=== PATIENT | male | born 1985 | race African-American/Black ===

== ENCOUNTER 2021-03-04 07:42 | Inpatient (IN) | payer OTHER ==
[~2021-03-04] VITALS: Ht 167.6 cm; Wt 57.2 kg
[2021-03-04] VITALS (23 sets, daily range): BP systolic 79–118; BP diastolic 21–73
--- NOTE | 2021-03-04 07:52 | NUR ---
PT UNCONSCIOUS, UNRESPONSIVE TO VOICE AND PAIN.
--- NOTE | 2021-03-04 07:52 | NUR ---
PT BIBRA FROM HOME C/O TOOK 3 CAPS OF GHB AND DRANK ALCOHOL. PLACED IN BED 9 ON MANDARIN TEACHER AND PULSE OX. ER MD AT BEDSIDE FOR EVAL. AWAITING ORDERS.
[2021-03-04] MEDS ORDERED: ONDANSETRON HCL/PF 4 MG/2 ML VIAL ONE (07:59)
[2021-03-04] MEDS ORDERED: ONDANSETRON HCL/PF 4 MG/2 ML VIAL IVP ONE (08:00)
--- NOTE | 2021-03-04 08:10 | NUR ---
CALLED POISON CONTROL THIS IS THEIR RECOMMENDATION: BE ON THE LOOKOUT FOR EKG CHANGES SUCH : QNS DEPRESSION ST DEPRESSION MONITOR FOR SUPPORTIVE CARE UNTIL PATIENT WAKES UP AND EFFECTS WEAR OFF. CHECK FOR CHEM ACIDOSIS SUPPORTIVE CARE UNTIL WEARS OFF CHECK ALCOHOL.
--- NOTE | 2021-03-04 08:16 | NUR ---
PT APPEARS TO BE SEIZING. MD AT BEDSIDE.
[2021-03-04] MEDS ORDERED: LORAZEPAM INJ 2 MG/ML VIAL ONE (08:18)
[2021-03-04 08:23] LABS: BASOPHILS % (AUTO) 0.3 % (0.0-2.0); CALCIUM, SERUM 8.5 mg/dL (8.5-10.1); CARBON DIOXIDE 18 mmol/L (21-32); CHLORIDE 103 mmol/L (98-107); EOSINOPHILS % (AUTO) 0.1 % (0.0-6.0); GLUCOSE 155 mg/dL (74-106); HEMATOCRIT 46 % (39-51); HEMOGLOBIN 15.3 g/dL (13.5-17.5); LYMPHOCYTES # (AUTO) 2.5 K/uL (0.8-4.8); LYMPHOCYTES % (AUTO) 16.1 % (20.0-44.0); MEAN CORPUSCULAR HGB CONC 33 g/dl (31.0-36.0); MEAN CORPUSCULAR VOLUME 103 fL (80-96); MONOCYTES # (AUTO) 0.7 K/uL (0.1-1.30); MONOCYTES % (AUTO) 4.7 % (2.0-12.0); NEUTROPHILS # (AUTO) 12.4 K/uL (1.8-8.9); NEUTROPHILS % (AUTO) 78.8 % (43.0-81.0); PLATELET COUNT (AUTO) 207 K/uL (150-450); POTASSIUM 3.2 mmol/L (3.5-5.1); RED BLOOD CELL COUNT(AUTO) 4.48 MIL/uL (4.5-6.0); SODIUM SERUM 138 mmol/L (136-145); UREA NITROGEN, BLOOD 10 mg/dL (7-18); WHITE BLOOD COUNT (AUTO) 15.7 K/uL (4.3-11.0)
[2021-03-04 08:25] LABS: BILIRUBIN,URINE NEGATIVE (NEGATIVE); COLOR,URINE YELLOW (YELLOW); LEUKOCYTE ESTERASE ,URINE NEGATIVE (NEGATIVE); NITRITE, URINE NEGATIVE (NEGATIVE); PH,URINE 5.5 (5.0-8.0); PROTEIN,URINE 100 mg/dl (NEGATIVE); UGLUCOSE 100 MG/DL mg/dL (NEGATIVE); UROBILINOGEN,URINE 0.2 EU/dL (0.2)
[2021-03-04] MEDS ORDERED: PROPOFOL 100 ML ONE (08:26)
--- NOTE | 2021-03-04 08:27 | NUR ---
RT PT ORALLY INTUBATED BY DR LOMAX. 7.0 ETT SECURED AT 24CM AT THE LIP. COLOR CHANGED ON CO2 DETECTOR. BILAT CHEST RISE. ETT SECURED BY ANCHOR FAST. PLACED PT ON VENT WITH FOLLOWING SETTINGS PER MD ORDER: AC 14, VT 550, 60%, +5. VENT ALARMS SET AND FUNCTIONING PROPERLY. VENT PLUGGED INTO RED OUTLET. SUCTIONED PRN. WILL CONTINUE TO MONITOR THE PATIENT CLOSELY FOR ANY CHANGES. Addendum: 03/04/21 at 1807 by TELMA AMOS RT Amended: Links added.
--- NOTE | 2021-03-04 08:27 | NUR ---
ER MD AT BEDSIDE FOR INTUBATION.
--- NOTE | 2021-03-04 08:27 | NUR ---
RT AT BEDSIDE.
[2021-03-04 08:28] LABS: ALANINE AMINOTRANSFERASE 25 U/L (12-78); ALBUMIN 4.2 g/dL (3.4-5.0); ALKALINE PHOSPHATASE 90 U/L (46-116); ASPARTATE AMINOTRANSFERASE 29 U/L (15-37); BILIRUBIN,DIRECT 0.1 mg/dL (0.0-0.2); BILIRUBIN,TOTAL 0.4 mg/dL (0.2-1.0)
[2021-03-04 08:29] LABS: ACETAMINOPHEN < 10 ug/ml (10-30); ALCOHOL, BLOOD < 3 mg/dL (0-0)
[2021-03-04] MEDS ORDERED: LORAZEPAM INJ 2 MG/ML VIAL IV ONE (08:30)
--- NOTE | 2021-03-04 08:40 | NUR ---
CALLED TO UPDATE POISON CONTROL CENTER: UPDATED THEM FOR A-FIB EKG STATUS AND SEIZURE ACTIVITY. THEY WERE ABLE TO SAY THAT SEIZURES ARE RARE OCCURENCES AND ONLY FOUND 1 CASE OF A-FIB LASTING FOR [address] LOMAX ON RESULTS.
[2021-03-04 08:55] LABS: BACTERIA,URINE None seen /HPF (None Seen); RBC,URINE NONE SEEN /HPF (0-2); WBC,URINE 0-2 /HPF (0-3)
[2021-03-04 08:56] LABS: SQUAMOUS EPITHELIAL CELL,UR Rare /HPF (None Seen)
--- NOTE | 2021-03-04 08:58 | NUR ---
THE PATIENT IS TAKEN TO CT
[2021-03-04] MEDS ORDERED: ETOMIDATE 2 MG/ML VIAL IV ONE ×2 (09:00→10:42)
[2021-03-04] MEDS ORDERED: ROCURONIUM BROMIDE 100 MG/10 ML VIAL IV ONE (09:00)
[2021-03-04] MEDS ORDERED: PROPOFOL 100 ML IV ONE (09:00)
[2021-03-04] MEDS ORDERED: IV NS 0.9% 1,000 ML BAG IV ONE (09:00)
--- NOTE | 2021-03-04 09:07 | NUR ---
THE PATIENT IS BACK FROM CT
[2021-03-04 10:04] LABS: ABG BASE EXCESS -10.6 mmol/L; ABG OXYGEN SATURATION 99.4 % (92.0-98.5); ABG PCO2 38.6 mmHg (35.0-45.0); ABG PH 7.238 (7.350-7.450); ABG PO2 325.7 mmHg (75.0-100.0); AaDO2 59.6 mmHg; MetHb 0.2 % (0.0-1.5); O2Hb 97.2 % (94.0-97.0); PEEP,BG 5 cm H2O; SITE, ABG Right Radial; VT, ABG 550 mL
--- NOTE | 2021-03-04 10:09 | NUR ---
RT AT BEDISDE. VENTILATOR CHANGES: O2 30, AC 16
--- NOTE | 2021-03-04 10:10 | NUR ---
RT POST ABG RESULTS SHOWN TO DR. LOMAX. INCREASE RR TO 16, DECREASE O2 TO 30% PER MD ORDER. WILL CONTINUE TO MONITOR PATIENT FOR ANY CHANGES. Addendum: 03/04/21 at 1139 by TELMA AMOS RT Amended: Links added.
[2021-03-04] MEDS ORDERED: ROCURONIUM BROMIDE 50 MG/5 ML IV ONE (10:42)
--- NOTE | 2021-03-04 11:00 | NUR ---
RN NOTE PT FOUND IN ROOM, NO REPORT, PHYSICAL ASSESSMENT OUTLINED IN ADMISSION. PT INTUBATED DISPLAYING MILD AGITATION. RN WILL TITRATE PROPOFOL TO ACHIEVE SEDATION. VSS, RN WILL TREAT AND MONITOR FOR REMAINDER OF SHIFT.
--- NOTE | 2021-03-04 11:18 | NUR ---
THE PATIENT IS TRANSFERED TO ROOM 256 PER ACLS POLICY
[2021-03-04] MEDS ORDERED: PROPOFOL 100 ML IV PRN ×2 (11:30)
[2021-03-04] MEDS ORDERED: ACETAMINOPHEN 325 MG TABLET PO PRN (11:30)
[2021-03-04] MEDS ORDERED: ONDANSETRON HCL/PF 4 MG/2 ML VIAL IVP PRN (11:30)
[2021-03-04] MEDS ORDERED: LORAZEPAM INJ 2 MG/ML VIAL IV PRN (11:30)
[2021-03-04] MEDS ORDERED: Z GUARD REMEDY 2 OZ OINT TP PRN (11:30)
[2021-03-04] MEDS: PROPOFOL 10MG/ML 50ML 50 ML IV PRN ×3 (12:00→20:02)
[2021-03-04] MEDS: IV NS 0.9% 1,000 ML IV PRN (19:02)
--- NOTE | 2021-03-04 19:30 | NUR ---
RN NOTES PT FOUND SUPINE DISPLAYING NO S/S OF DISTRESS, FLACC = 0, NARESH = 3, BILATERAL RISE AND FALL OF THE CHEST. PULSES CHECKED BILATERALLY, CAP REFILL < 3 SECONDS BILATERALLY. REEVES CATH BELOW PATIENT DRAINING BY GRAVITY. R FA 20G IV PATIENT AND INTACT. SBAR AND REPORT GIVEN TO BUTADIENE CONVERTER HELPER. ALL QUESTIONS ANSWERED. PT ENDORSED IN STABLE CONDITION FOR ANGELO.
--- NOTE | 2021-03-04 19:50 | NUR ---
ICU NOTES Poison control called regarding patient status..Updates given.No orders received.
--- NOTE | 2021-03-04 20:00 | NUR ---
ICU NOTES Received patient sedated on Diprivan gtt at 90 mcg.Intubated to mechanical vent on full vent support.SPO2 99%-100%No acute respiratory distress noted.SR per tele monitoring.VS stable.OGT clamped.Placement verified.Aspiration precaution maintained with HOB elevated.NPO status.FC to gravity.Turned and repositioned.Continue monitoring.
--- NOTE | 2021-03-04 20:15 | NUR ---
ICU NOTES MIDLINE inserted to ART by PICC LINE Danilo GUEVARA.Site intact and with good blood return.
--- NOTE | 2021-03-04 21:10 | NUR ---
RECEIVED PT INTUBATED 7.0 ETT SECURED AT 24CM. NO RESP DISTRESS NOTED PT TOLERATING VENT SETTINGS. SX'D SMALL AMT OF THIN WHITE SECRETIONS. VENT ALARMS SET AND AUDIBLE. CONTINUE TO MONITOR. Addendum: 03/04/21 at 2112 by PERNELL AUGUSTINE RT Amended: Links added.
[2021-03-04] MEDS: PROPOFOL 100 ML IV PRN (21:16)
[2021-03-04] MEDS: ENOXAPARIN SODIUM 40 MG/0.4 ML DISP.SYRIN SQ SCH (22:35)
[2021-03-05] VITALS (35 sets, daily range): BP systolic 107–129; BP diastolic 60–82
[2021-03-05] MEDS: PROPOFOL 100 ML IV PRN ×8 (00:40→21:00)
[2021-03-05 04:25] LABS: BASOPHILS % (AUTO) 0.2 % (0.0-2.0); HEMATOCRIT 42 % (39-51); HEMOGLOBIN 14.2 g/dL (13.5-17.5); LYMPHOCYTES # (AUTO) 1.1 K/uL (0.8-4.8); LYMPHOCYTES % (AUTO) 9.3 % (20.0-44.0); MEAN CORPUSCULAR HGB CONC 34 g/dl (31.0-36.0); MEAN CORPUSCULAR VOLUME 101 fL (80-96); MONOCYTES # (AUTO) 1.2 K/uL (0.1-1.30); MONOCYTES % (AUTO) 10.8 % (2.0-12.0); NEUTROPHILS # (AUTO) 9.2 K/uL (1.8-8.9); NEUTROPHILS % (AUTO) 79.7 % (43.0-81.0); PLATELET COUNT (AUTO) 192 K/uL (150-450); RED BLOOD CELL COUNT(AUTO) 4.11 MIL/uL (4.5-6.0); WHITE BLOOD COUNT (AUTO) 11.5 K/uL (4.3-11.0)
[2021-03-05 04:36] LABS: ALBUMIN 3.8 g/dL (3.4-5.0); BILIRUBIN,TOTAL 0.6 mg/dL (0.2-1.0); CALCIUM, SERUM 8.4 mg/dL (8.5-10.1); CREATININE 1.1 mg/dL (0.6-1.3); MAGNESIUM 1.9 mg/dL (1.8-2.4); PHOSPHORUS 3.1 mg/dL (2.5-4.9); POTASSIUM 4.3 mmol/L (3.5-5.1); TOTAL PROTEIN, SERUM 7.2 g/dL (6.4-8.2)
[2021-03-05 04:41] LABS: THYROID STIMULATING HORMONE 0.484 uIU/mL (0.358-3.74)
[2021-03-05] MEDS: IV NS 0.9% 1,000 ML IV PRN ×2 (06:51→20:06)
--- NOTE | 2021-03-05 07:15 | NUR ---
ICU NOTES Patient remains sedated and intubated.VSS.SR.Bed bath rendered and complete linens change.Turned and repositioned q 2 hrs.Able to titrate Diprivan down to 85 mcg well tolerated.IVF infusing well.No seizure activity noted all throughout the shift.Needs met.Report given to day shift for ralph.
--- NOTE | 2021-03-05 07:30 | NUR ---
RN NOTES PT FOUND SUPINE DISPLAYING NO S/S OF DISTRESS, FLACC = 0, NARESH = 3 AND BILATERAL RISE AND FALL OF THE CHEST IS OBSERVED. ETT VENT SETTINGS SET PER RT. PULSES CHECKED BILATERALLY. CAP REFILL < 3 SECONDS BILATERALLY. AROM PERFORMED. REEVES CATH BAG BELOW PATIENT DRAINING BY GRAVITY. R UA MIDLINE PATIENT AND INTACT. VSS, RN WILL MONITOR AND TREAT THROUGHOUT SHIFT. SAFETY MEASURES IN PLACE, BED LOCKED AND IN LOWEST POSITION, SIDE RAILS UPX2, CALL LIGHT WITHIN REACH, BED ALARM ARMED.
[2021-03-05] MEDS: PANTOPRAZOLE 40 MG VIAL IV SCH (08:12)
[2021-03-05] MEDS: CEFEPIME 2 GM in IV D5W 100 ML IV SCH ×2 (11:51→21:01)
--- NOTE | 2021-03-05 19:15 | NUR ---
RN NOTES PT FOUND SUPINE DISPLAYING NO S/S OF DISTRESS, FLACC = 0, NARESH = 3 AND BILATERAL RISE AND FALL OF THE CHEST IS OBSERVED. ETT VENT SETTINGS SET PER RT. PULSES CHECKED BILATERALLY. CAP REFILL < 3 SECONDS BILATERALLY. AROM PERFORMED. REEVES CATH BAG BELOW PATIENT DRAINING BY GRAVITY DARK URINE. R UA MIDLINE PATIENT AND INTACT. VSS, PT CLEANED AND OFFLOADED WITH PILLOWS. SBAR AND REPORT GIVEN TO HEEL GUMMER RN. ALL QUESTIONS ANSWERED. SAFETY MEASURES IN PLACE, BED LOCKED AND IN LOWEST POSITION, SIDE RAILS UPX2, CALL LIGHT WITHIN REACH, BED ALARM ARMED. PT ENDORSED IN STABLE CONDITION FOR ANGELO.
--- NOTE | 2021-03-05 20:00 | NUR ---
ICU NOTES Received patient remains sedated on Diprivan gtt at 80 mcg.Orally intubated on full vent support.VS stable.SR per tele monitoring.No acute distress noted.Remains NPO status with IVF NS infusing to ART ML.Site intact.OGT clamped and placement verified.Aspiration precaution observed.FC to gravity.Turned and repositioned.Safety measures implemented.Continue to monitor.
--- NOTE | 2021-03-05 20:21 | NUR ---
RECEIVED PT INTUBATED 7.0 ETT SECURED AT 24CM LIP LINE. PT TOLERATING VENT SETTINGS. SX'D SMALL AMT OF THIN WHITE SECRETIONS. VENT ALARMS SET AND AUDIBLE. CONTINUE TO MONITOR. Addendum: 03/05/21 at 2022 by PERNELL AUGUSTINE RT Amended: Links added.
[2021-03-05] MEDS: ENOXAPARIN SODIUM 40 MG/0.4 ML DISP.SYRIN SQ SCH (21:01)
[2021-03-06] VITALS (38 sets, daily range): BP systolic 98–145; BP diastolic 56–79
--- NOTE | 2021-03-06 | NUR ---
ICU NOTES Patient remains sedated and tolerating vent settings well.Secretions suctioned and oral care done. VS stable.SR.Turned and repositioned.No acute distress noted.
[2021-03-06] MEDS: PROPOFOL 100 ML IV PRN ×4 (00:20→09:16)
[2021-03-06 04:27] LABS: BASOPHILS % (AUTO) 0.1 % (0.0-2.0); EOSINOPHILS % (AUTO) 0.1 % (0.0-6.0); HEMATOCRIT 39 % (39-51); HEMOGLOBIN 12.9 g/dL (13.5-17.5); LYMPHOCYTES # (AUTO) 1.6 K/uL (0.8-4.8); LYMPHOCYTES % (AUTO) 12.7 % (20.0-44.0); MEAN CORPUSCULAR HGB CONC 33 g/dl (31.0-36.0); MEAN CORPUSCULAR VOLUME 103 fL (80-96); MONOCYTES # (AUTO) 1.3 K/uL (0.1-1.30); MONOCYTES % (AUTO) 10.9 % (2.0-12.0); NEUTROPHILS # (AUTO) 9.4 K/uL (1.8-8.9); NEUTROPHILS % (AUTO) 76.2 % (43.0-81.0); PLATELET COUNT (AUTO) 158 K/uL (150-450); RED BLOOD CELL COUNT(AUTO) 3.77 MIL/uL (4.5-6.0); WHITE BLOOD COUNT (AUTO) 12.3 K/uL (4.3-11.0)
[2021-03-06 05:00] LABS: CALCIUM, SERUM 7.7 mg/dL (8.5-10.1); CREATININE 0.9 mg/dL (0.6-1.3); MAGNESIUM 1.9 mg/dL (1.8-2.4); PHOSPHORUS 2.2 mg/dL (2.5-4.9); POTASSIUM 3.7 mmol/L (3.5-5.1)
[2021-03-06] MEDS: CEFEPIME 2 GM in IV D5W 100 ML IV SCH ×3 (05:00→20:35)
--- NOTE | 2021-03-06 06:20 | NUR ---
ICU NOTES Patient status unchanged.SR.VSS.AM care done.Continue on Diprivan gtt at 80 mcg.IVF infusing well. No seizure activity noted during the shift.No significant changes noted.All due medications administered. Turned and repositioned q 2 hrs.NAD.
[2021-03-06] MEDS: PANTOPRAZOLE 40 MG VIAL IV SCH (09:16)
[2021-03-06] MEDS: IV NS 0.9% 1,000 ML IV PRN ×2 (09:35→23:32)
[2021-03-06] MEDS ORDERED: Sodium Phosphate 15 MMOL in IV NS 0.9% 250 ML IV SCH (10:00)
--- NOTE | 2021-03-06 10:15 | NUR ---
RECEIVED ORDER FROM DR GREEN FOR PATIENT TO BE EXTUBATED AND TO STOP DIPRIVAN DRIP. PER MD ORDERS TO STOP IT COMPLETELY AND MONITOR THE PATIENT.
--- NOTE | 2021-03-06 10:30 | NUR ---
PATIENT WAS EXTUBATED AT [address] NAJERA BY SIDE. PATIENT IN STABLE CONDITION. NO C/O SOB. 02 SAT 99% ON 4LPM VIA N/C
--- NOTE | 2021-03-06 16:45 | NUR ---
SS Note: SS consult for locating responsible libertarian pending. SW unable to locate roommate at this time or any family. SW will follow up as needed. Neela CAMPBELL called ICU and notified nursing to document name and phone number of anyone who calls for this pt.
--- NOTE | 2021-03-06 19:16 | NUR ---
RN CLOSING NOTES Patient is alert and oriented. Patient is breathing even and unlabored. Patient is on 4liters with 02 sat of 98%. No c/o pain or discomfort. Right upper arm midline noted with normal saline 0.9% 75 cc/hour. HOB kept elevated. Bed is in lowest and locked position. Call light with in reach.
[2021-03-06] MEDS: ENOXAPARIN SODIUM 40 MG/0.4 ML DISP.SYRIN SQ SCH (20:36)
[2021-03-07] VITALS (20 sets, daily range): BP systolic 112–135; BP diastolic 53–84
[2021-03-07] MEDS: CEFEPIME 2 GM in IV D5W 100 ML IV SCH ×2 (04:37→13:02)
[2021-03-07 04:48] LABS: BASOPHILS # (AUTO) 0.1 K/uL (0.0-0.2); EOSINOPHILS % (AUTO) 0.2 % (0.0-6.0); HEMOGLOBIN 12.4 g/dL (13.5-17.5); LYMPHOCYTES # (AUTO) 1.6 K/uL (0.8-4.8); MEAN CORPUSCULAR VOLUME 101 fL (80-96); WHITE BLOOD COUNT (AUTO) 10.8 K/uL (4.3-11.0)
[2021-03-07 04:59] LABS: BASOPHILS % (AUTO) 0.5 % (0.0-2.0); HEMATOCRIT 36 % (39-51); MEAN CORPUSCULAR HGB CONC 35 g/dl (31.0-36.0); NEUTROPHILS # (AUTO) 8.2 K/uL (1.8-8.9); NEUTROPHILS % (AUTO) 75.3 % (43.0-81.0); PLATELET COUNT (AUTO) 154 K/uL (150-450); RED BLOOD CELL COUNT(AUTO) 3.54 MIL/uL (4.5-6.0)
[2021-03-07 05:22] LABS: CALCIUM, SERUM 7.8 mg/dL (8.5-10.1); CREATININE 0.6 mg/dL (0.6-1.3); MAGNESIUM 2.3 mg/dL (1.8-2.4); PHOSPHORUS 2.3 mg/dL (2.5-4.9); POTASSIUM 3.4 mmol/L (3.5-5.1)
--- NOTE | 2021-03-07 07:15 | NUR ---
RN OPENING NOTES RECEIVED PT AWAKE, A/O X4. ON 4L O2 VIA NC, O2 SAT @100%. NO SOB OR ANY S/S OF ACUTE RESPIRATORY DISTRESS AT THIS TIME. DENIES ANY PAIN. SR ON MONITOR. REEVES CATH IN PLACE DRAINING INTO CELAR YELLOW URINE. ON CLEAR LIQUID DIET. ART MIDLINE INTACT, PATENT AND FLUSHED. NS @75MLS/HR, INFUSING WELL. SAFETY MEASURES IN PLACE. CALL LIGHT WITHIN REACH. BED LOCKED AND IN LOWEST POSITION WITH SIDE RAILS UP X2. WILL CONTINUE TO MONITOR.
[2021-03-07] MEDS: PANTOPRAZOLE 40 MG VIAL IV SCH (08:07)
[2021-03-07] MEDS ORDERED: K PHOS NEUTRAL 250 MG TABLET PO ONE (09:00)
[2021-03-07] MEDS ORDERED: POTASSIUM CHLORIDE 20 MEQ TAB.PRT.SR PO ONE (09:00)
[2021-03-07] MEDS ORDERED: POTASSIUM CL. PREMIX PERIPHER. 50 ML IV SCH (09:00)
--- NOTE | 2021-03-07 09:15 | NUR ---
RN NOTES STABLE ON ROOM AIR, O2 SAT @98%. REEVES CATH REMOVED ASEPTICALLY.
--- NOTE | 2021-03-07 10:00 | NUR ---
RN NOTES PT USES URINAL. URINE OUTPUT 450CC. NO PAIN REPORTED AT THIS TIME.
--- NOTE | 2021-03-07 12:00 | NUR ---
RN NOTES PT ABLE TO EAT LUNCH WITH NO DIFFICULTY. NO SIGNS OF ASPIRATION.
--- NOTE | 2021-03-07 14:00 | NUR ---
RN NOTES PT ABLE TO AMBULATE BUT A LITTLE WOBBLY. NO DIZZINESS. MD AWARE.
--- NOTE | 2021-03-07 17:00 | NUR ---
RN NOTES PT UNABLE TO OPEN HIS CELLPHONE OT CALL HIS FRIEND TO PICK HIM UP. CM MADE AWARE.
--- NOTE | 2021-03-07 18:00 | NUR ---
RN NOTES BRENNAN CALLED AND GAVE [facility] NUMBER [phone]. [facility]I SAID WILL CALL BACK IN 1 HR FOR AVAILABILITY. CM AWARE.
--- NOTE | 2021-03-07 19:11 | NUR ---
RN NOTES DISCHARGED PT HOME. STABLE ON ROOM AIR. NO SOB. NO PAIN REPORTED. IV ACCESS REMOVED ASEPTICALLY. DISCHARGE INSTRUCTIONS GIVEN TO PT, VERBALIZED UNDERSTANDING. SKIN IS INTACT. FLU VACCINE LAST AUGUST 2020. REFUSED COVID VACCINE, PREFERS TO RECEIVE IT SOMEWHERE ELSE. WENT HOME VIA TAXI.
[2021-03-08] MEDS ORDERED: PANTOPRAZOLE 40 MG TABLET.DR PO SCH (09:00)
== END 2021-03-07 18:50 | disposition home or self-care (01) | DRG 812 ==
LOC: ER 07:46 → ICU 09:44
PROVIDERS: ADMIT Hospitalist; ATTEND Hospitalist
PROC: 5A1945Z Respiratory Ventilation, 24-96 Consecutive Hours (ICD-10-PCS; principal; 2021-03-04)
PROC: 0BH18EZ Insertion of Endotracheal Airway into Trachea, Via Natural or Artificial Opening Endoscopic (ICD-10-PCS; 2021-03-04)
PROC: 05H933Z Insertion of Infusion Device into Right Brachial Vein, Percutaneous Approach (ICD-10-PCS; 2021-03-04)
DX: T41.291A Poisoning by other general anesthetics, accidental (unintentional), initial encounter (principal); J96.02 Acute respiratory failure with hypercapnia; J69.0 Pneumonitis due to inhalation of food and vomit; I21.A1 Myocardial infarction type 2; E87.2 Acidosis; Y92.009 Unspecified place in unspecified non-institutional (private) residence as the place of occurrence of the external cause; D72.829 Elevated white blood cell count, unspecified; E87.6 Hypokalemia; Z20.822 Contact with and (suspected) exposure to COVID-19; T51.91XA Toxic effect of unspecified alcohol, accidental (unintentional), initial encounter; E83.39 Other disorders of phosphorus metabolism; F12.10 Cannabis abuse, uncomplicated; F41.9 Anxiety disorder, unspecified; G40.409 Other generalized epilepsy and epileptic syndromes, not intractable, without status epilepticus
CPT/HCPCS: 31720; 36415; 36600; 70450-TC; 71045-TC; 80048-TC; 80053-TC; 80061-TC; 80076-TC; 81001; 82550-TC; 82803-TC; 83735-TC; 84100-TC; 84443-TC; 84484-TC; 85025-TC; 93307-TC; 94002-TC; 94003-TC; 94760-TC; 94799-TC; 95819-TC; 99082-TC; A9563; C9113; G0378; G0480; J0692; J1650; J2060; J2405; J3490; J7030; J7050; J7060; U0003